=== PATIENT | female | born 1970 | race Caucasian/White ===

== ENCOUNTER 2018-03-26 16:23 | Emergency (ER) | payer BC ==
[2018-03-26] MEDS ORDERED: Sodium Chloride 0.9% 1,000 ML IV SCH (17:15)
--- NOTE | 2018-03-27 02:50 | CT ---
UNENHANCED BRAIN CT Multislice acquisition through the brain without IV contrast was performed. No priors. There is bifrontal atrophy. No masses or mass effect. No intracranial hemorrhage. No evidence of acute or subacute infarct. There is minimal mucosal thickening in the right maxillary sinus consistent with chronic sinusitis. IMPRESSION: No acute intracranial abnormalities. [id number] MTDD
--- NOTE | 2018-03-28 10:00 | ER ---
DATE OF SERVICE: 03/26/2018 HISTORY OF PRESENT ILLNESS: The patient is a 47-year-old female who presents to the ER by ambulance after 2 syncopal episodes. Initially, she was sitting on a bench, fell over and hit her head. She was only out for a few seconds. She woke back up. She felt like she was going to vomit. She passed out again, this time for a little longer. The patient was brought in by ambulance. On arrival, she was alert, oriented, in no apparent distress. She had been running earlier this morning in the sun. She ran about 4 miles. She drank a little bit of water afterwards. She also had a couple of drinks after that of alcoholic beverages. The patient did not have any nausea or vomiting after the syncopal episodes. She did not have any vomiting before that, but did complain of nausea in between. ALLERGIES: NKDA. CURRENT MEDICATIONS: She takes a multivitamin pack, which is custom designed, so we do not know what is in it. She takes no other medication. She has only ever had a foot surgery as far as past medical history. PHYSICAL EXAMINATION: GENERAL: She is alert, oriented, in no apparent distress. VITAL SIGNS: O2 saturation 100%, blood pressure was 103/70, and pulse rate was 67. HEENT: Generally unremarkable. She is little tender on the right side of her scalp, but no obvious abrasions or ecchymosis or swelling. Pupils are equal, round, and reactive to light. Throat appears normal. NECK: Supple. No nodes. Nontender to palpation. LUNGS: Clear. HEART: Regular sinus rhythm. ABDOMEN: Benign. EXTREMITIES: No clubbing, cyanosis, or edema. NEUROLOGIC: Nonfocal. We did do orthostatic vitals with no significant change, and the patient had a negative Romberg. LABORATORY DATA: We did a noncontrast head CT, which appears normal. CBC shows a normal white count of 8.2, hemoglobin is 12.8. Comprehensive metabolic panel is completely within normal limits except for slightly decreased alkaline phosphatase of 38. BUN is 24, creatinine is 0.96. Blood alcohol level is 0.005. ASSESSMENT: Syncopal episode, most likely due to the exercising, decreased hydration, and vasodilation from the alcohol. She appears to just have a common syncopal episode. We did do a 12- lead EKG also, which just shows sinus bradycardia with a rate in the 50s. She was given 1 L of IV fluid in the ER and discharged in good condition. ORTEGA/ABBY /[id number] MTDD
== END 2018-03-26 18:02 | disposition home or self-care (01) ==
LOC: LB.ED 16:23
DX: R55 Syncope and collapse (principal)
CPT/HCPCS: 36415; 70450; 80053; 85025; 93005; 99284; A0425; A0429; G0480; J7030